=== PATIENT | female | born 1955 | race Caucasian/White ===

== ENCOUNTER 2021-03-28 09:01 | Inpatient (IN) | payer OTHER ==
[2021-03-28 09:55] VITALS: BMI 22.9
[2021-03-28] MEDS ORDERED: ACETAMINOPHEN 1000 MG/100 ML BAG IVPB ONE ×2 (10:25→10:43)
[2021-03-28 10:37] LABS: BASO % 0.9 % (0-2.0); EOS % 0.8 % (0-4.5); HEMATOCRIT 24.7 % (32.4-45.2); HEMOGLOBIN 7.9 GM/dL (10.7-15.3); LYMPH % 36.9 % (8-40); MCH 26.9 pg (25.7-33.7); MCHC 32.1 g/dl (32.0-36.0); MEAN CELL VOLUME 83.8 fl (80-96); MEAN PLT VOLUME 7.9 fl (7.5-11.1); MONO % 5.3 % (3.8-10.2); NEUT % 56.1 % (42.8-82.8); PLATELET COUNT 485 10^3/uL (134-434); RBC 2.95 M/mm3 (3.60-5.2); VENOUS BASE EXCESS -2.5 mmol/L (-2-2); VENOUS O2 SATURATION 35.2 % (70-80); VENOUS PCO2 44.5 mmHg (38-52); VENOUS PH 7.336 (7.310-7.410); WHITE BLOOD COUNT 7.3 K/mm3 (4.0-10.0)
[2021-03-28 10:44] LABS: INR 1.23 (0.83-1.09); PROTHROMBIN TIME (PATIENT) 14.2 SEC (9.7-13.0)
[2021-03-28 10:47] LABS: ACTIVATED PTT 27.6 SECONDS (25.2-36.5)
[2021-03-28] MEDS ORDERED: ACETAMINOPHEN INJECTION 100 ML IVPB ONE (10:51)
[2021-03-28] MEDS ORDERED: SODIUM CHLORIDE 0.9% 500 ML INFUS.BAG IV ONE (10:53)
[2021-03-28 10:56] LABS: CHLORIDE 104 mmol/L (98-107); SODIUM 135 mmol/L (136-145)
[2021-03-28 10:58] LABS: ALBUMIN 3.1 g/dl (3.4-5.0); ANION GAP 7 MMOL/L (8-16); BLOOD UREA NITROGEN 18.4 mg/dL (7-18); CALCIUM 9.3 mg/dL (8.5-10.1); CO2 25 mmol/L (21-32)
[2021-03-28 11:00] LABS: SGPT/ALT 16 U/L (13-61)
[2021-03-28 11:01] LABS: CREATININE 0.9 mg/dL (0.55-1.3); SGOT/AST 11 U/L (15-37)
[2021-03-28 11:03] LABS: BILIRUBIN,TOTAL 0.2 mg/dL (0.2-1)
[2021-03-28 11:04] LABS: ALK PHOS 85 U/L (45-117)
[2021-03-28 11:15] LABS: GLUCOSE,RANDOM 462 mg/dL (74-106)
[2021-03-28] MEDS ORDERED: CALCIUM GLUC IN NACL, ISO-OSM 1 GM/50 ML BAG IVPB ONE (11:23)
[2021-03-28] MEDS ORDERED: INSULIN REGULAR HUMAN 100 UNITS/ML *VIAL IVPUSH ONE (11:23)
[2021-03-28] MEDS ORDERED: PANTOPRAZOLE SODIUM 40 MG VIAL IVPUSH ONE ×2 (11:25→12:38)
[2021-03-28] MEDS ORDERED: morphine CARPU-JECT 4 MG/1 ML DISP.SYRIN IVPUSH ONE (11:36)
[2021-03-28 11:38] LABS: URINE APPEARANCE CLEAR; URINE BILIRUBIN NEGATIVE (NEGATIVE); URINE COLOR YELLOW; URINE GLUCOSE (UA) 3+ (NEGATIVE); URINE KETONE TRACE (NEGATIVE); URINE LEUK ESTERASE NEGATIVE (NEGATIVE); URINE NITRITE NEGATIVE (NEGATIVE); URINE PROTEIN NEGATIVE (NEGATIVE); URINE UROBILINOGEN 0.2 mg/dL (0.2-1.0)
[2021-03-28] MEDS ORDERED: morphine SULFATE 4 MG/ML VIAL ONE (11:44)
[2021-03-28] MEDS ORDERED: CALCIUM GLUCONATE 10% - 1,000 MG/10 ML VIAL ONE (11:45)
[2021-03-28] MEDS ORDERED: INSULIN REGULAR HUMAN 100 UNITS/ML *VIAL ONE (11:46)
[2021-03-28] MEDS ORDERED: CALCIUM GLUCONATE 10% - 1,000 MG/10 ML VIAL IVPUSH ONE (11:53)
[2021-03-28] MEDS ORDERED: PANTOPRAZOLE SODIUM 40 MG/100 ML BAG IVPB ONE (13:12)
[2021-03-28] MEDS ORDERED: CARVEDILOL 3.125 MG TABLET (FP) ONE (20:59)
[2021-03-28] MEDS ORDERED: PANTOPRAZOLE 40 MG TABLET ONE (20:59)
[2021-03-28] MEDS ORDERED: SUCRALFATE 1 GM TABLET (FP) ONE (20:59)
[2021-03-28] MEDS ORDERED: SENNOSIDES 8.6MG TABLET (FP) PO ONE (21:00)
[2021-03-28] MEDS ORDERED: GABAPENTIN 100 MG CAPSULE ONE (21:00)
[2021-03-28] MEDS ORDERED: DOCUSATE SODIUM 100 MG CAPSULE (FP) PO ONE (21:00)
[2021-03-28] MEDS ORDERED: oxyCODONE HCL 5 MG TABLET ONE (21:00)
[2021-03-28] MEDS: DOCUSATE SODIUM 100 MG CAPSULE (FP) PO SCH (21:08)
[2021-03-28] MEDS: PANTOPRAZOLE 40 MG TABLET PO SCH (21:08)
[2021-03-28] MEDS: SUCRALFATE 1 GM TABLET (FP) PO SCH (21:08)
[2021-03-28] MEDS: GABAPENTIN 100 MG CAPSULE PO SCH (21:08)
[2021-03-28] MEDS: CARVEDILOL 6.25 MG TABLET (FP) PO SCH (21:08)
[2021-03-28] MEDS: SENNOSIDES 8.6MG TABLET (FP) PO SCH (21:09)
[2021-03-28] MEDS: oxyCODONE HCL 5 MG TABLET PO PRN (21:09)
[2021-03-29] MEDS: oxyCODONE HCL 5 MG TABLET PO PRN ×3 (03:51→22:26)
[2021-03-29] MEDS: INSULIN (LEVEMIR) 100 UNITS/ML UNITS SQ SCH (06:52)
[2021-03-29] MEDS: DOCUSATE SODIUM 100 MG CAPSULE (FP) PO SCH ×3 (06:52→21:06)
[2021-03-29] MEDS: GABAPENTIN 100 MG CAPSULE PO SCH ×3 (06:52→21:05)
[2021-03-29] MEDS: INSULIN SLIDING SCALE (NOVOLOG) 1 VIAL SQ SCH ×4 (07:35→21:06)
[2021-03-29] MEDS: ACETAMINOPHEN 325 MG TABLET (FP) PO PRN ×2 (07:36→20:52)
[2021-03-29 08:33] LABS: BASO % 0.8 % (0-2.0); EOS % 1.7 % (0-4.5); LYMPH % 30.5 % (8-40); MCH 28.2 pg (25.7-33.7); MCHC 33.4 g/dl (32.0-36.0); MEAN CELL VOLUME 84.2 fl (80-96); MEAN PLT VOLUME 7.5 fl (7.5-11.1); MONO % 7.1 % (3.8-10.2); NEUT % 59.9 % (42.8-82.8); PLATELET COUNT 390 10^3/uL (134-434); RBC 2.85 M/mm3 (3.60-5.2); RDW 16.4 % (11.6-15.6); WHITE BLOOD COUNT 8.5 K/mm3 (4.0-10.0)
[2021-03-29 08:51] LABS: CALCIUM 8.7 mg/dL (8.5-10.1)
[2021-03-29 08:52] LABS: BLOOD UREA NITROGEN 15.9 mg/dL (7-18)
[2021-03-29 08:55] LABS: CREATININE 0.7 mg/dL (0.55-1.3)
[2021-03-29] MEDS ORDERED: MAGNESIUM HYDROX 2400MG/30ML ORAL SUSPENSION 30 ML CUP PO SCH (10:00)
[2021-03-29] MEDS ORDERED: PATIENT'S OWN MEDICATION (NON-FORMULARY) (Folic Acid [Folic Acid] 0.8 MG Tablet) PO SCH (10:00)
[2021-03-29] MEDS: PANTOPRAZOLE 40 MG TABLET PO SCH (11:35)
[2021-03-29] MEDS: cloNIDine HCL 0.1 MG TABLET PO SCH (11:35)
[2021-03-29] MEDS: ZINC SULFATE 220 MG CAPSULE (FP) PO SCH (11:35)
[2021-03-29] MEDS: CARVEDILOL 6.25 MG TABLET (FP) PO SCH ×2 (11:35→21:05)
[2021-03-29] MEDS: MULTIVITAMINS (DAILY MVI) TABLET (FP) PO SCH (11:35)
[2021-03-29] MEDS: SUCRALFATE 1 GM TABLET (FP) PO SCH (11:35)
[2021-03-29] MEDS: ASCORBIC ACID 500 MG TABLET (FP) PO SCH (11:36)
[2021-03-29] MEDS: POLYETHYLENE GLYCOL (HEALTHYLAX) 3350 17 GM PACKET PO SCH (11:42)
[2021-03-29] MEDS: SENNOSIDES 8.6MG TABLET (FP) PO SCH ×2 (11:43→21:06)
[2021-03-29] MEDS ORDERED: IRON SUCROSE INJECTION 200 MG in SODIUM CHLORIDE 90 ML IVPB ONE (12:00)
[2021-03-29] MEDS: MIRTAZAPINE 15 MG TABLET (FP) PO SCH (21:05)
[2021-03-30] MEDS: oxyCODONE HCL 5 MG TABLET PO PRN ×2 (06:01→21:45)
[2021-03-30] MEDS: GABAPENTIN 100 MG CAPSULE PO SCH ×3 (06:01→21:45)
[2021-03-30] MEDS: INSULIN SLIDING SCALE (NOVOLOG) 1 VIAL SQ SCH ×4 (06:02→21:46)
[2021-03-30] MEDS: INSULIN (LEVEMIR) 100 UNITS/ML UNITS SQ SCH ×2 (06:09→22:05)
[2021-03-30] MEDS: DOCUSATE SODIUM 100 MG CAPSULE (FP) PO SCH ×3 (06:09→22:05)
[2021-03-30 07:35] LABS: BASO % 0.5 % (0-2.0); EOS % 1.6 % (0-4.5); HEMATOCRIT 25.8 % (32.4-45.2); HEMOGLOBIN 8.4 GM/dL (10.7-15.3); LYMPH % 22.1 % (8-40); MCH 27.4 pg (25.7-33.7); MCHC 32.5 g/dl (32.0-36.0); MEAN CELL VOLUME 84.2 fl (80-96); MEAN PLT VOLUME 7.8 fl (7.5-11.1); MONO % 5.9 % (3.8-10.2); NEUT % 69.9 % (42.8-82.8); PLATELET COUNT 460 10^3/uL (134-434); RBC 3.06 M/mm3 (3.60-5.2); RDW 16.3 % (11.6-15.6); WHITE BLOOD COUNT 12.4 K/mm3 (4.0-10.0)
[2021-03-30 08:00] LABS: ALBUMIN 2.7 g/dl (3.4-5.0); BLOOD UREA NITROGEN 11.6 mg/dL (7-18); CALCIUM 8.8 mg/dL (8.5-10.1)
[2021-03-30 08:03] LABS: CREATININE 0.6 mg/dL (0.55-1.3)
[2021-03-30 08:05] LABS: BILIRUBIN,TOTAL 0.4 mg/dL (0.2-1); TOT PROT 6.1 g/dl (6.4-8.2)
[2021-03-30] MEDS: PANTOPRAZOLE 40 MG TABLET PO SCH (10:12)
[2021-03-30] MEDS: CARVEDILOL 6.25 MG TABLET (FP) PO SCH ×2 (10:12→21:45)
[2021-03-30] MEDS: cloNIDine HCL 0.1 MG TABLET PO SCH (10:12)
[2021-03-30] MEDS: MULTIVITAMINS (DAILY MVI) TABLET (FP) PO SCH (10:12)
[2021-03-30] MEDS: ASCORBIC ACID 500 MG TABLET (FP) PO SCH (10:12)
[2021-03-30] MEDS: ZINC SULFATE 220 MG CAPSULE (FP) PO SCH (10:12)
[2021-03-30] MEDS: POLYETHYLENE GLYCOL (HEALTHYLAX) 3350 17 GM PACKET PO SCH (10:14)
[2021-03-30] MEDS: SENNOSIDES 8.6MG TABLET (FP) PO SCH ×2 (10:15→22:05)
[2021-03-30] MEDS: NYSTATIN/TRIAMCINOLONE TOPICAL CREAM 15 GM TUBE TP SCH ×2 (13:22→22:16)
[2021-03-30 20:01] LABS: BASO % 0.8 % (0-2.0); EOS % 2.1 % (0-4.5); HEMATOCRIT 25.2 % (32.4-45.2); HEMOGLOBIN 8.4 GM/dL (10.7-15.3); LYMPH % 31.4 % (8-40); MCH 27.9 pg (25.7-33.7); MCHC 33.3 g/dl (32.0-36.0); MEAN CELL VOLUME 83.9 fl (80-96); MEAN PLT VOLUME 7.9 fl (7.5-11.1); MONO % 8.4 % (3.8-10.2); NEUT % 57.3 % (42.8-82.8); PLATELET COUNT 431 10^3/uL (134-434); RBC 3.01 M/mm3 (3.60-5.2); RDW 16.5 % (11.6-15.6); WHITE BLOOD COUNT 10.1 K/mm3 (4.0-10.0)
[2021-03-30] MEDS: MIRTAZAPINE 15 MG TABLET (FP) PO SCH (21:45)
[2021-03-31] MEDS: ACETAMINOPHEN 325 MG TABLET (FP) PO PRN (02:36)
[2021-03-31] MEDS: oxyCODONE HCL 5 MG TABLET PO PRN ×3 (04:02→20:23)
[2021-03-31] MEDS: GABAPENTIN 100 MG CAPSULE PO SCH ×3 (06:25→21:23)
[2021-03-31] MEDS: INSULIN SLIDING SCALE (NOVOLOG) 1 VIAL SQ SCH ×4 (06:25→21:22)
[2021-03-31] MEDS: INSULIN (LEVEMIR) 100 UNITS/ML UNITS SQ SCH ×2 (06:25→21:21)
[2021-03-31] MEDS: DOCUSATE SODIUM 100 MG CAPSULE (FP) PO SCH ×3 (06:28→21:18)
[2021-03-31 08:02] LABS: RETICULOCYTES 6.59 % (0.5-1.5)
[2021-03-31] MEDS: cloNIDine HCL 0.1 MG TABLET PO SCH (10:26)
[2021-03-31 10:36] LABS: BASO % 0.4 % (0-2.0); EOS % 3.3 % (0-4.5); HEMOGLOBIN 8.1 GM/dL (10.7-15.3); LYMPH % 37.5 % (8-40); MCH 27.7 pg (25.7-33.7); MCHC 32.4 g/dl (32.0-36.0); MEAN CELL VOLUME 85.4 fl (80-96); MEAN PLT VOLUME 7.4 fl (7.5-11.1); MONO % 9.4 % (3.8-10.2); NEUT % 49.4 % (42.8-82.8); PLATELET COUNT 412 10^3/uL (134-434); RBC 2.93 M/mm3 (3.60-5.2); RDW 16.6 % (11.6-15.6); WHITE BLOOD COUNT 7.3 K/mm3 (4.0-10.0)
[2021-03-31] MEDS: CARVEDILOL 6.25 MG TABLET (FP) PO SCH ×2 (11:14→21:23)
[2021-03-31] MEDS: PANTOPRAZOLE 40 MG TABLET PO SCH (11:14)
[2021-03-31] MEDS: MULTIVITAMINS (DAILY MVI) TABLET (FP) PO SCH (11:15)
[2021-03-31] MEDS: SENNOSIDES 8.6MG TABLET (FP) PO SCH ×2 (11:15→21:18)
[2021-03-31] MEDS: NYSTATIN/TRIAMCINOLONE TOPICAL CREAM 15 GM TUBE TP SCH ×2 (11:16→21:24)
[2021-03-31] MEDS: POLYETHYLENE GLYCOL (HEALTHYLAX) 3350 17 GM PACKET PO SCH (11:16)
[2021-03-31] MEDS: ZINC SULFATE 220 MG CAPSULE (FP) PO SCH (11:16)
[2021-03-31] MEDS: ASCORBIC ACID 500 MG TABLET (FP) PO SCH (11:16)
[2021-03-31] MEDS: MIRTAZAPINE 15 MG TABLET (FP) PO SCH (21:23)
[2021-04-01] MEDS: oxyCODONE HCL 5 MG TABLET PO PRN ×3 (06:08→23:08)
[2021-04-01] MEDS: GABAPENTIN 100 MG CAPSULE PO SCH ×3 (06:08→22:43)
[2021-04-01] MEDS: INSULIN (LEVEMIR) 100 UNITS/ML UNITS SQ SCH ×2 (06:09→23:21)
[2021-04-01] MEDS: INSULIN SLIDING SCALE (NOVOLOG) 1 VIAL SQ SCH ×4 (06:10→23:21)
[2021-04-01] MEDS: DOCUSATE SODIUM 100 MG CAPSULE (FP) PO SCH ×3 (06:10→22:43)
[2021-04-01] MEDS: cloNIDine HCL 0.1 MG TABLET PO SCH (10:09)
[2021-04-01] MEDS: ASCORBIC ACID 500 MG TABLET (FP) PO SCH (10:09)
[2021-04-01] MEDS: ZINC SULFATE 220 MG CAPSULE (FP) PO SCH (10:09)
[2021-04-01] MEDS: CARVEDILOL 6.25 MG TABLET (FP) PO SCH ×2 (10:10→22:42)
[2021-04-01] MEDS: NYSTATIN/TRIAMCINOLONE TOPICAL CREAM 15 GM TUBE TP SCH ×2 (10:10→22:43)
[2021-04-01] MEDS: PANTOPRAZOLE 40 MG TABLET PO SCH (10:10)
[2021-04-01] MEDS: CLOPIDOGREL BISULFATE 75 MG TABLET (FP) PO SCH (10:10)
[2021-04-01] MEDS: MULTIVITAMINS (DAILY MVI) TABLET (FP) PO SCH (10:10)
[2021-04-01] MEDS: SENNOSIDES 8.6MG TABLET (FP) PO SCH ×2 (10:10→22:42)
[2021-04-01] MEDS: POLYETHYLENE GLYCOL (HEALTHYLAX) 3350 17 GM PACKET PO SCH (10:10)
[2021-04-01] MEDS: POTASSIUM CHLORIDE TABS 20 MEQ TABLET.ER (FP) PO SCH (10:10)
[2021-04-01 12:32] LABS: CALCIUM 8.4 mg/dL (8.5-10.1)
[2021-04-01 12:33] LABS: BLOOD UREA NITROGEN 11.6 mg/dL (7-18)
[2021-04-01 12:36] LABS: CREATININE 0.6 mg/dL (0.55-1.3)
[2021-04-01] MEDS: MIRTAZAPINE 15 MG TABLET (FP) PO SCH (22:42)
[2021-04-02] MEDS: ACETAMINOPHEN 325 MG TABLET (FP) PO PRN ×2 (04:48→21:11)
[2021-04-02] MEDS: GABAPENTIN 100 MG CAPSULE PO SCH ×3 (06:19→21:09)
[2021-04-02] MEDS: DOCUSATE SODIUM 100 MG CAPSULE (FP) PO SCH ×4 (06:19→22:00)
[2021-04-02] MEDS: oxyCODONE HCL 5 MG TABLET PO PRN ×2 (06:50→19:42)
[2021-04-02] MEDS: INSULIN (LEVEMIR) 100 UNITS/ML UNITS SQ SCH ×2 (06:51→21:10)
[2021-04-02] MEDS: INSULIN SLIDING SCALE (NOVOLOG) 1 VIAL SQ SCH ×4 (06:53→21:10)
[2021-04-02] MEDS: CLOPIDOGREL BISULFATE 75 MG TABLET (FP) PO SCH (09:47)
[2021-04-02] MEDS: cloNIDine HCL 0.1 MG TABLET PO SCH (09:47)
[2021-04-02] MEDS: MULTIVITAMINS (DAILY MVI) TABLET (FP) PO SCH (09:47)
[2021-04-02] MEDS: CARVEDILOL 6.25 MG TABLET (FP) PO SCH ×2 (09:47→21:09)
[2021-04-02] MEDS: ZINC SULFATE 220 MG CAPSULE (FP) PO SCH (09:47)
[2021-04-02] MEDS: SENNOSIDES 8.6MG TABLET (FP) PO SCH ×3 (09:47→22:00)
[2021-04-02] MEDS: ASCORBIC ACID 500 MG TABLET (FP) PO SCH (09:47)
[2021-04-02] MEDS: POLYETHYLENE GLYCOL (HEALTHYLAX) 3350 17 GM PACKET PO SCH (09:48)
[2021-04-02] MEDS: POTASSIUM CHLORIDE TABS 20 MEQ TABLET.ER (FP) PO SCH (09:48)
[2021-04-02] MEDS: PANTOPRAZOLE 40 MG TABLET PO SCH (09:48)
[2021-04-02] MEDS: NYSTATIN/TRIAMCINOLONE TOPICAL CREAM 15 GM TUBE TP SCH ×2 (09:49→21:10)
[2021-04-02] MEDS: MIRTAZAPINE 15 MG TABLET (FP) PO SCH (21:09)
[2021-04-03] MEDS: DOCUSATE SODIUM 100 MG CAPSULE (FP) PO SCH ×3 (06:49→21:08)
[2021-04-03] MEDS: GABAPENTIN 100 MG CAPSULE PO SCH ×3 (06:50→21:07)
[2021-04-03] MEDS: INSULIN SLIDING SCALE (NOVOLOG) 1 VIAL SQ SCH ×4 (06:51→21:08)
[2021-04-03] MEDS: INSULIN (LEVEMIR) 100 UNITS/ML UNITS SQ SCH ×2 (08:00→21:07)
[2021-04-03] MEDS: POTASSIUM CHLORIDE TABS 20 MEQ TABLET.ER (FP) PO SCH (09:27)
[2021-04-03] MEDS: PANTOPRAZOLE 40 MG TABLET PO SCH (09:27)
[2021-04-03] MEDS: ZINC SULFATE 220 MG CAPSULE (FP) PO SCH (09:27)
[2021-04-03] MEDS: CLOPIDOGREL BISULFATE 75 MG TABLET (FP) PO SCH (09:28)
[2021-04-03] MEDS: MULTIVITAMINS (DAILY MVI) TABLET (FP) PO SCH (09:28)
[2021-04-03] MEDS: oxyCODONE HCL 5 MG TABLET PO PRN ×2 (09:28→21:16)
[2021-04-03] MEDS: ASCORBIC ACID 500 MG TABLET (FP) PO SCH (09:28)
[2021-04-03] MEDS: cloNIDine HCL 0.1 MG TABLET PO SCH (09:30)
[2021-04-03] MEDS: CARVEDILOL 6.25 MG TABLET (FP) PO SCH ×2 (09:30→21:07)
[2021-04-03] MEDS: NYSTATIN/TRIAMCINOLONE TOPICAL CREAM 15 GM TUBE TP SCH ×2 (09:31→21:07)
[2021-04-03] MEDS: ACETAMINOPHEN 325 MG TABLET (FP) PO PRN (09:31)
[2021-04-03] MEDS: SENNOSIDES 8.6MG TABLET (FP) PO SCH ×2 (09:33→21:09)
[2021-04-03] MEDS: POLYETHYLENE GLYCOL (HEALTHYLAX) 3350 17 GM PACKET PO SCH (09:33)
[2021-04-03 14:05] LABS: BASO % 0.6 % (0-2.0); EOS % 1.4 % (0-4.5); HEMATOCRIT 24.1 % (32.4-45.2); HEMOGLOBIN 7.6 GM/dL (10.7-15.3); LYMPH % 26.2 % (8-40); MCH 27.1 pg (25.7-33.7); MCHC 31.4 g/dl (32.0-36.0); MEAN CELL VOLUME 86.3 fl (80-96); MEAN PLT VOLUME 7.6 fl (7.5-11.1); MONO % 6.4 % (3.8-10.2); NEUT % 65.4 % (42.8-82.8); PLATELET COUNT 339 10^3/uL (134-434); RDW 17.4 % (11.6-15.6); WHITE BLOOD COUNT 7.5 K/mm3 (4.0-10.0)
[2021-04-03 14:23] LABS: CALCIUM 8.8 mg/dL (8.5-10.1)
[2021-04-03 14:24] LABS: ALBUMIN 2.3 g/dl (3.4-5.0); BLOOD UREA NITROGEN 12.8 mg/dL (7-18)
[2021-04-03 14:27] LABS: CREATININE 0.7 mg/dL (0.55-1.3)
[2021-04-03 14:28] LABS: BILIRUBIN,TOTAL 0.2 mg/dL (0.2-1); TOT PROT 5.7 g/dl (6.4-8.2)
[2021-04-03] MEDS: MIRTAZAPINE 15 MG TABLET (FP) PO SCH (21:07)
[2021-04-04] MEDS: oxyCODONE HCL 5 MG TABLET PO PRN ×4 (03:28→20:54)
[2021-04-04] MEDS: INSULIN SLIDING SCALE (NOVOLOG) 1 VIAL SQ SCH ×4 (06:24→21:01)
[2021-04-04] MEDS: GABAPENTIN 100 MG CAPSULE PO SCH ×3 (06:24→21:01)
[2021-04-04] MEDS: INSULIN (LEVEMIR) 100 UNITS/ML UNITS SQ SCH ×2 (06:24→21:01)
[2021-04-04] MEDS: DOCUSATE SODIUM 100 MG CAPSULE (FP) PO SCH ×3 (06:25→21:01)
[2021-04-04] MEDS: ASCORBIC ACID 500 MG TABLET (FP) PO SCH (10:11)
[2021-04-04] MEDS: PANTOPRAZOLE 40 MG TABLET PO SCH (10:11)
[2021-04-04] MEDS: CLOPIDOGREL BISULFATE 75 MG TABLET (FP) PO SCH (10:11)
[2021-04-04] MEDS: CARVEDILOL 6.25 MG TABLET (FP) PO SCH ×2 (10:11→21:00)
[2021-04-04] MEDS: ZINC SULFATE 220 MG CAPSULE (FP) PO SCH (10:11)
[2021-04-04] MEDS: cloNIDine HCL 0.1 MG TABLET PO SCH (10:11)
[2021-04-04] MEDS: POTASSIUM CHLORIDE TABS 20 MEQ TABLET.ER (FP) PO SCH (10:12)
[2021-04-04] MEDS: POLYETHYLENE GLYCOL (HEALTHYLAX) 3350 17 GM PACKET PO SCH (10:12)
[2021-04-04] MEDS: NYSTATIN/TRIAMCINOLONE TOPICAL CREAM 15 GM TUBE TP SCH ×2 (10:12→21:03)
[2021-04-04] MEDS: MULTIVITAMINS (DAILY MVI) TABLET (FP) PO SCH (10:12)
[2021-04-04] MEDS: SENNOSIDES 8.6MG TABLET (FP) PO SCH ×2 (10:13→21:04)
[2021-04-04 12:11] LABS: BASO % 0.8 % (0-2.0); EOS % 2.5 % (0-4.5); HEMATOCRIT 26.1 % (32.4-45.2); HEMOGLOBIN 8.2 GM/dL (10.7-15.3); MCH 26.9 pg (25.7-33.7); MCHC 31.4 g/dl (32.0-36.0); MEAN CELL VOLUME 85.6 fl (80-96); MEAN PLT VOLUME 7.6 fl (7.5-11.1); NEUT % 60.7 % (42.8-82.8); PLATELET COUNT 440 10^3/uL (134-434); RBC 3.05 M/mm3 (3.60-5.2); RDW 17.2 % (11.6-15.6); WHITE BLOOD COUNT 7.1 K/mm3 (4.0-10.0)
[2021-04-04 12:31] LABS: CALCIUM 9.1 mg/dL (8.5-10.1)
[2021-04-04 12:32] LABS: ALBUMIN 2.6 g/dl (3.4-5.0); BLOOD UREA NITROGEN 12.2 mg/dL (7-18)
[2021-04-04 12:35] LABS: CREATININE 0.6 mg/dL (0.55-1.3)
[2021-04-04 12:36] LABS: TOT PROT 6.3 g/dl (6.4-8.2)
[2021-04-04 12:37] LABS: BILIRUBIN,TOTAL 0.2 mg/dL (0.2-1)
[2021-04-04] MEDS: CLINDAMYCIN 600MG PREMIX IVPB 600 MG/50 ML BAG IVPB SCH ×2 (17:01→21:03)
[2021-04-04] MEDS: MIRTAZAPINE 15 MG TABLET (FP) PO SCH (21:01)
[2021-04-05] MEDS: CLINDAMYCIN 600MG PREMIX IVPB 600 MG/50 ML BAG IVPB SCH ×4 (03:00→21:46)
[2021-04-05] MEDS: oxyCODONE HCL 5 MG TABLET PO PRN ×3 (04:31→21:44)
[2021-04-05] MEDS: GABAPENTIN 100 MG CAPSULE PO SCH ×3 (05:15→21:44)
[2021-04-05] MEDS: DOCUSATE SODIUM 100 MG CAPSULE (FP) PO SCH ×3 (05:16→21:44)
[2021-04-05] MEDS: INSULIN SLIDING SCALE (NOVOLOG) 1 VIAL SQ SCH ×4 (06:22→21:45)
[2021-04-05] MEDS: INSULIN (LEVEMIR) 100 UNITS/ML UNITS SQ SCH ×2 (06:22→21:46)
[2021-04-05 07:32] LABS: BASO % 0.8 % (0-2.0); EOS % 2.9 % (0-4.5); HEMATOCRIT 23.2 % (32.4-45.2); HEMOGLOBIN 7.5 GM/dL (10.7-15.3); LYMPH % 30.6 % (8-40); MCH 27.3 pg (25.7-33.7); MCHC 32.5 g/dl (32.0-36.0); MEAN CELL VOLUME 83.9 fl (80-96); MEAN PLT VOLUME 7.3 fl (7.5-11.1); MONO % 8.2 % (3.8-10.2); NEUT % 57.5 % (42.8-82.8); PLATELET COUNT 332 10^3/uL (134-434); RBC 2.76 M/mm3 (3.60-5.2); RDW 17.5 % (11.6-15.6); WHITE BLOOD COUNT 5.9 K/mm3 (4.0-10.0)
[2021-04-05] MEDS: CARVEDILOL 6.25 MG TABLET (FP) PO SCH ×2 (09:12→21:44)
[2021-04-05] MEDS: MULTIVITAMINS (DAILY MVI) TABLET (FP) PO SCH (09:12)
[2021-04-05] MEDS: ZINC SULFATE 220 MG CAPSULE (FP) PO SCH (09:13)
[2021-04-05] MEDS: ASCORBIC ACID 500 MG TABLET (FP) PO SCH (09:13)
[2021-04-05] MEDS: NYSTATIN/TRIAMCINOLONE TOPICAL CREAM 15 GM TUBE TP SCH ×2 (09:13→21:46)
[2021-04-05] MEDS: PANTOPRAZOLE 40 MG TABLET PO SCH (09:13)
[2021-04-05] MEDS: cloNIDine HCL 0.1 MG TABLET PO SCH (09:13)
[2021-04-05] MEDS: CLOPIDOGREL BISULFATE 75 MG TABLET (FP) PO SCH (09:13)
[2021-04-05] MEDS: SENNOSIDES 8.6MG TABLET (FP) PO SCH ×2 (09:16→21:44)
[2021-04-05] MEDS: POLYETHYLENE GLYCOL (HEALTHYLAX) 3350 17 GM PACKET PO SCH (09:16)
[2021-04-05] MEDS: POTASSIUM CHLORIDE TABS 20 MEQ TABLET.ER (FP) PO SCH (12:40)
[2021-04-05] MEDS: MIRTAZAPINE 15 MG TABLET (FP) PO SCH (21:44)
[2021-04-06] MEDS: oxyCODONE HCL 5 MG TABLET PO PRN (03:12)
[2021-04-06] MEDS: CLINDAMYCIN 600MG PREMIX IVPB 600 MG/50 ML BAG IVPB SCH ×2 (03:25→09:18)
[2021-04-06] MEDS: DOCUSATE SODIUM 100 MG CAPSULE (FP) PO SCH (06:25)
[2021-04-06] MEDS: INSULIN SLIDING SCALE (NOVOLOG) 1 VIAL SQ SCH ×2 (06:28→12:21)
[2021-04-06] MEDS: GABAPENTIN 100 MG CAPSULE PO SCH (06:29)
[2021-04-06] MEDS: INSULIN (LEVEMIR) 100 UNITS/ML UNITS SQ SCH (06:29)
[2021-04-06] MEDS: CLOPIDOGREL BISULFATE 75 MG TABLET (FP) PO SCH (09:17)
[2021-04-06] MEDS: PANTOPRAZOLE 40 MG TABLET PO SCH (09:17)
[2021-04-06] MEDS: POTASSIUM CHLORIDE TABS 20 MEQ TABLET.ER (FP) PO SCH (09:17)
[2021-04-06] MEDS: MULTIVITAMINS (DAILY MVI) TABLET (FP) PO SCH (09:17)
[2021-04-06] MEDS: ASCORBIC ACID 500 MG TABLET (FP) PO SCH (09:17)
[2021-04-06] MEDS: cloNIDine HCL 0.1 MG TABLET PO SCH (09:18)
[2021-04-06] MEDS: ZINC SULFATE 220 MG CAPSULE (FP) PO SCH (09:18)
[2021-04-06] MEDS: POLYETHYLENE GLYCOL (HEALTHYLAX) 3350 17 GM PACKET PO SCH (09:18)
[2021-04-06] MEDS: NYSTATIN/TRIAMCINOLONE TOPICAL CREAM 15 GM TUBE TP SCH (09:18)
[2021-04-06] MEDS: CARVEDILOL 6.25 MG TABLET (FP) PO SCH (09:18)
[2021-04-06] MEDS: SENNOSIDES 8.6MG TABLET (FP) PO SCH (09:19)
[2021-04-06 12:51] LABS: BASO % 0.6 % (0-2.0); EOS % 3.5 % (0-4.5); HEMOGLOBIN 9.9 GM/dL (10.7-15.3); MCH 27.7 pg (25.7-33.7); MCHC 33.1 g/dl (32.0-36.0); MEAN CELL VOLUME 83.7 fl (80-96); MEAN PLT VOLUME 7.4 fl (7.5-11.1); MONO % 6.4 % (3.8-10.2); NEUT % 60.5 % (42.8-82.8); PLATELET COUNT 407 10^3/uL (134-434); RBC 3.58 M/mm3 (3.60-5.2); RDW 16.4 % (11.6-15.6); WHITE BLOOD COUNT 7.4 K/mm3 (4.0-10.0)
[2021-04-06 13:07] LABS: BLOOD UREA NITROGEN 11.5 mg/dL (7-18)
[2021-04-06 13:10] LABS: CREATININE 0.5 mg/dL (0.55-1.3)
[2021-04-06 13:52] VITALS: BP 140/62; PULSE 82; TEMP 98.2
[2021-04-06] MEDS: ACETAMINOPHEN 325 MG TABLET (FP) PO PRN (14:17)
== END 2021-04-06 20:44 | DRG 394 ==
LOC: JER 09:01 → JERBED 18:04 → J4W 22:47
PROVIDERS: ADMIT Family Medicine; ATTEND Family Medicine
PROC: 30233N1 Transfusion of Nonautologous Red Blood Cells into Peripheral Vein, Percutaneous Approach (ICD-10-PCS; principal; 2021-03-28)
DX: K55.20 Angiodysplasia of colon without hemorrhage (principal); D68.32 Hemorrhagic disorder due to extrinsic circulating anticoagulants; D68.9 Coagulation defect, unspecified; D64.9 Anemia, unspecified; Z89.519 Acquired absence of unspecified leg below knee; E11.65 Type 2 diabetes mellitus with hyperglycemia; I99.9 Unspecified disorder of circulatory system; I48.91 Unspecified atrial fibrillation; Y83.9 Surgical procedure, unspecified as the cause of abnormal reaction of the patient, or of later complication, without mention of misadventure at the time of the procedure; T81.89XA Other complications of procedures, not elsewhere classified, initial encounter; I73.9 Peripheral vascular disease, unspecified
CPT/HCPCS: 36415; 36430; 71045-TC-FY; 74174-TC; 80048; 80053; 81003; 82010; 82272; 82607; 82728; 82746; 82803; 82962; 83540; 83550; 83605; 84484; 85025; 85045; 85610; 85730; 86140; 86850; 86900; 86901; 86922; 87040; 87070; 87086; 87186; 87205; 93005; 93010; 93306-TC; 99285-25; C9803; J0735; J1756; P9058; U0003; U0005